=== PATIENT | female | born 1950 | race Caucasian/White ===

== ENCOUNTER 2019-01-28 00:39 | Outpatient (CLI) | payer MEDICARE, OTHER, SELFPAY ==
--- NOTE | 2019-01-28 06:49 | DI.RAD_ITS ---
SYMPTOM/DIAGNOSIS: INTERMITTENT DYSPHAGIA, R13.10 BARIUM SWALLOW: Fluoroscopy Time: .09 seconds The preliminary films of the chest show normal cardiac size, clear lungs and normal mediastinal contour. A lateral view of the neck shows no focal abnormality. Barium was ingested and showed grossly normal hypopharyngeal motility. Esophagus mucosa appears intact throughout and there is normal motility. A 12 mm. barium tablet passed easily through the esophagus into the stomach. IMPRESSION: Negative barium swallow.
[2019-01-28 08:55] LABS: Anion Gap 10.6 mmol/L (3-11); BUN 16 mg/dL (7-18); CO2 28.4 mmol/L (21.0-32.0); CREATININE 0.74 mg/dL (0.55-1.02); Calcium 9.2 mg/dL (8.5-10.1); Chloride 105 mmol/L (98-107); Cholesterol 224 mg/dL (50-200); Glucose 93 mg/dL (70-100); HDL Cholesterol 55 mg/dL (40-60); LDL CHOLESTEROL 144 mg/dL (<100); Potassium 3.9 mmol/L (3.5-5.1); Sodium 144 mmol/L (136-145); TSH 5.55 uIU/mL (0.358-3.74); Triglyceride 105 mg/dL (30-150)
[2019-01-28] MEDS: Barium Sulfate 60% W/V 355 ML BTL PO (08:59)
[2019-01-28] MEDS: Barium Sulfate 700 MG TAB PO (08:59)
--- NOTE | 2019-01-28 11:30 | DI.MAMMO_ITS ---
SYMPTOM/DIAGNOSIS: SCREENING, Z12.31 MAMMOGRAMS: Mammograms were interpreted according to the usual protocol including computer analysis with CAD system, tomosynthesis and C view imaging. The breasts are of moderate density with fairly symmetrical distribution of fibroglandular tissue. No dominant mass or clumped microcalcification is identified in either breast. The current examination is compared with previous examinations including 01/2017 and there has been no gross interval change in appearance in comparison with the previous studies. CONCLUSION: No specific evidence of malignancy at this time. Routine screening examinations are suggested at yearly intervals in this age group according to the ACS/ACR guidelines. Category 1. Breast density, category B. MQSA ASSESSMENT OF FINDINGS: Negative. Category 1. Patient will receive a letter notifying them of these results. BI-RADS category B. There are scattered areas of fibroglandular density.
== END 2019-01-28 00:59 ==
PROVIDERS: PCP Family Medicine; Visit Provider Family Medicine
DX: Z12.31 Encounter for screening mammogram for malignant neoplasm of breast (principal); R13.10 Dysphagia, unspecified; K76.0 Fatty (change of) liver, not elsewhere classified; E89.0 Postprocedural hypothyroidism; I10 Essential (primary) hypertension
CPT/HCPCS: 36415; 77063; 77067; 80048; 80061; 83721; 74220; 84443; J3490

== ENCOUNTER 2019-02-03 02:05 | Outpatient (CLI) | payer MEDICARE, OTHER, SELFPAY ==
[2019-02-03 17:00] LABS: T3,Free 3.2 pg/ml (2.8-5.3)
== END 2019-02-03 02:25 ==
PROVIDERS: PCP Family Medicine; Visit Provider Family Medicine
DX: R79.89 Other specified abnormal findings of blood chemistry (principal)
CPT/HCPCS: 36415; 84481

== ENCOUNTER 2020-10-04 03:00 | Outpatient (CLI) | payer MEDICARE, OTHER, SELFPAY ==
[2020-10-04 12:55] LABS: TSH 4.69 uIU/mL (0.36-3.74)
== END 2020-10-04 03:20 ==
PROVIDERS: PCP Nurse Practitioner; Visit Provider Nurse Practitioner
DX: E04.9 Nontoxic goiter, unspecified (principal)
CPT/HCPCS: 36415; 84443

== ENCOUNTER 2020-11-02 03:27 | Outpatient (CLI) | payer MEDICARE, OTHER, SELFPAY ==
[2020-11-02 13:24] LABS: FREE T4 0.91 ng/dL (0.76-1.46); TSH 3.16 uIU/mL (0.36-3.74)
[2020-11-02 17:46] LABS: Thyroglobulin Antibody 233 U/mL (<=60); Thyroperoxidase Antibody >1300 U/mL (<=60)
== END 2020-11-02 03:47 ==
PROVIDERS: PCP Nurse Practitioner; Visit Provider Nurse Practitioner Family
DX: E03.9 Hypothyroidism, unspecified (principal); E04.9 Nontoxic goiter, unspecified
CPT/HCPCS: 36415; 86376; 84439; 84443

== ENCOUNTER 2021-01-31 02:25 | Outpatient (CLI) | payer MEDICARE, OTHER, SELFPAY ==
--- NOTE | 2021-01-31 06:45 | DI.MAMMO_ITS ---
EXAM: MG MAMMO SCREENING CLINICAL HISTORY: screening,z12.39. TECHNIQUE: Bilateral full field digital CC and MLO mammographic images were obtained with 3D tomosyn thesis and utilizing computer aided detection (CAD). COMPARISON: Prior mammograms dating back to 2010, the most recent being January 2019. FINDINGS: There are multiple small benign-appearing nodules in both breasts which appears stable from prior filiberto dies. There are no new spiculated masses nor malignant appearing microcalcification groups. There is no significant architectural distortion nor skin thickening-retraction. IMPRESSION: Stable benign-appearing findings. No obvious radiographic evidence of malignancy. BI-RADS Category 2 - Benign Findings Breast Density - Category B - Scattered areas of fibroglandular density Breast density Category C or D implies that the patient has dense breast tissue. Dense breast tissue can make it harder to find cancer on a mammogram. Dense breast tissue is also associated with an incr eased risk of breast cancer. This information about the result of the mammogram report was provided to the patient to raise their awareness. Use this report when you speak with the patient about their risks for breast cancer, which includes their family history. At that time, you may recommend additional screening tests (Ultrasoun d or MRI) as these tests may add significant information. A negative radiographic report should not delay biopsy if a dominant or clinically suspicious mass is present. Up to ten percent of cancers are not identified on mammography. A negative report may reinforce clinical impression. Adenosis and dense breasts may obscure an underlying neoplasm. False positive reports average 6 to 10%. Patient will receive a letter notifying them of these results.
== END 2021-01-31 02:45 ==
PROVIDERS: PCP Nurse Practitioner; Visit Provider Nurse Practitioner
DX: Z12.31 Encounter for screening mammogram for malignant neoplasm of breast (principal)
CPT/HCPCS: 77063; 77067

== ENCOUNTER 2021-02-15 03:32 | Outpatient (CLI) | payer MEDICARE, OTHER, SELFPAY ==
[2021-02-15 12:39] LABS: ALT 36 U/L (14-59); AST 20 U/L (15-37); Albumin 3.9 g/dL (3.4-5.0); Alkaline Phosphatase 73 U/L (46-116); Bilirubin, Direct 0.1 mg/dL (0.0-0.2); Bilirubin, Total 0.4 mg/dL (0.2-1.0); CREATININE 0.8 mg/dL (0.55-1.02); Potassium 4.2 mmol/L (3.5-5.1); Total Protein 6.8 g/dL (6.4-8.2)
[2021-02-15 12:53] LABS: Calculated LDL 150 mg/dL (<100); Cholesterol 234 mg/dL (<200); HDL Cholesterol 55 mg/dL (40-60); Triglyceride 145 mg/dL (<150)
== END 2021-02-15 03:33 | disposition home or self-care (01) ==
PROVIDERS: PCP Nurse Practitioner; Visit Provider Nurse Practitioner
DX: I10 Essential (primary) hypertension (principal); K76.0 Fatty (change of) liver, not elsewhere classified
CPT/HCPCS: 36415; 80061; 80076; 82565; 84132

== ENCOUNTER 2022-02-09 02:05 | Outpatient (CLI) | payer MEDICARE, SELFPAY ==
[2022-02-09 12:47] LABS: Hemoglobin A1C 5.8 % (<5.7)
[2022-02-09 13:56] LABS: Anion Gap 8.7 mmol/L (3-11); BUN 15 mg/dL (7-18); CO2 29.3 mmol/L (21.0-32.0); CREATININE 0.6 mg/dL (0.55-1.02); Calcium 8.7 mg/dL (8.5-10.1); Calculated LDL 147 mg/dL (<100); Chloride 105 mmol/L (98-107); Cholesterol 237 mg/dL (<200); Glucose 86 mg/dL (74-106); HDL Cholesterol 56 mg/dL (40-60); Potassium 4.2 mmol/L (3.5-5.1); Sodium 143 mmol/L (136-145); TSH (W/Ref FT4) 4.23 uIU/mL (0.36-3.74); Triglyceride 171 mg/dL (<150)
[2022-02-09 14:14] LABS: FREE T4 0.82 ng/dL (0.76-1.46)
== END 2022-02-09 02:06 | disposition home or self-care (01) ==
LOC: LBO 02:06
PROVIDERS: PCP Nurse Practitioner; Visit Provider Nurse Practitioner
DX: I10 Essential (primary) hypertension (principal); R73.09 Other abnormal glucose; R13.10 Dysphagia, unspecified
CPT/HCPCS: 36415; 80048; 80061; 83036; 84439; 84443

== ENCOUNTER 2022-03-07 00:41 | Outpatient (CLI) | payer MEDICARE, SELFPAY ==
--- NOTE | 2022-03-07 06:30 | DI.MAMMO_ITS ---
Exam(s) MAMMO SCREENING EXAM: MAMMO SCREENING CLINICAL HISTORY: screening,z12.39. TECHNIQUE: Bilateral full field digital CC and MLO mammographic images were obtained with 3D tomosyn thesis and utilizing computer aided detection (CAD). COMPARISON: Prior mammograms were reviewed, the most recent being January 2021. FINDINGS: There is continued stable appearance of the benign-appearing nodules in both breasts. There are no new spiculated masses nor malignant appearing microcalcification groups. There is no significant architectural distortion nor skin thickening-retraction. IMPRESSION: Stable benign findings. No radiographic evidence of malignancy. BI-RADS Category 2 - Benign Findings Breast Density - Category B - Scattered areas of fibroglandular density Breast density Category C or D implies that the patient has dense breast tissue. Dense breast tissue can make it harder to find cancer on a mammogram. Dense breast tissue is also associated with an incr eased risk of breast cancer. This information about the result of the mammogram report was provided to the patient to raise their awareness. Use this report when you speak with the patient about their risks for breast cancer, which includes their family history. At that time, you may recommend additional screening tests (Ultrasoun d or MRI) as these tests may add significant information. A negative radiographic report should not delay biopsy if a dominant or clinically suspicious mass is present. Up to ten percent of cancers are not identified on mammography. A negative report may reinforce clinical impression. Adenosis and dense breasts may obscure an underlying neoplasm. False positive reports average 6 to 10%. Patient will receive a letter notifying them of these results.
== END 2022-03-07 01:01 ==
PROVIDERS: PCP Nurse Practitioner; Visit Provider Nurse Practitioner
DX: Z12.31 Encounter for screening mammogram for malignant neoplasm of breast (principal)
CPT/HCPCS: 77063; 77067

== ENCOUNTER 2022-07-27 15:24 | Outpatient (REF) | payer MEDICARE, SELFPAY | END 2022-07-27 15:25 | disposition home or self-care (01) | LOC: LBN 15:24 | PROVIDERS: PCP Nurse Practitioner; Visit Provider Emergency Medicine | DX: R19.7 Diarrhea, unspecified (principal) | CPT/HCPCS: 87329 ==

== ENCOUNTER 2022-08-29 02:32 | Outpatient (CLI) | payer MEDICARE, SELFPAY ==
[2022-08-29 13:01] LABS: Calculated LDL 75 mg/dL (<100); Cholesterol 148 mg/dL (<200); HDL Cholesterol 57 mg/dL (40-60); Triglyceride 83 mg/dL (<150)
== END 2022-08-29 02:33 | disposition home or self-care (01) ==
LOC: LOS 02:32
PROVIDERS: PCP Nurse Practitioner; Visit Provider Nurse Practitioner
DX: E78.5 Hyperlipidemia, unspecified (principal)
CPT/HCPCS: 36415; 80061

== ENCOUNTER 2023-02-20 02:44 | Outpatient (CLI) | payer MEDICARE, SELFPAY ==
[2023-02-20 07:44] LABS: HCT 41.7 % (36.0-46.0); HGB 13.7 g/dL (11.2-15.7); MCH 29.1 pg (27.0-33.0); MCHC 32.9 % (32.0-36.0); MCV 89 fL (80-95); MPV 9.9 fL (8.0-11.0); Platelet Count 214 10^3/uL (130-400); RDW 12.7 % (11.7-14.6); RDW-SD 41.6 fL; WBC 6.06 10^3/uL (4.4-10.8)
[2023-02-20 07:58] LABS: Hemoglobin A1C 5.7 % (<5.7)
[2023-02-20 08:42] LABS: ALT 28 U/L (14-59); AST 16 U/L (15-37); Albumin 3.8 g/dL (3.4-5.0); Alkaline Phosphatase 82 U/L (46-116); Anion Gap 6.9 mmol/L (3-11); BUN 17 mg/dL (7-18); Bilirubin, Total 0.4 mg/dL (0.2-1.0); CO2 29.1 mmol/L (21.0-32.0); CREATININE 0.8 mg/dL (0.55-1.02); Calcium 9.1 mg/dL (8.5-10.1); Calculated LDL 80 mg/dL (<100); Chloride 106 mmol/L (98-107); Cholesterol 158 mg/dL (<200); Estimated GFR 78.72 (mL/min/1.73m2); Glucose 93 mg/dL (74-106); HDL Cholesterol 65 mg/dL (40-60); Potassium 4.2 mmol/L (3.5-5.1); Sodium 142 mmol/L (136-145); TSH (W/Ref FT4) 4.28 uIU/mL (0.36-3.74); Total Protein 7.3 g/dL (6.4-8.2); Triglyceride 66 mg/dL (<150)
[2023-02-20 08:59] LABS: FREE T4 0.74 ng/dL (0.76-1.46)
== END 2023-02-20 02:45 | disposition home or self-care (01) ==
PROVIDERS: PCP Nurse Practitioner Family; Visit Provider Nurse Practitioner Family
DX: R13.10 Dysphagia, unspecified (principal); E66.9 Obesity, unspecified; E78.5 Hyperlipidemia, unspecified; F51.01 Primary insomnia; I10 Essential (primary) hypertension; K76.0 Fatty (change of) liver, not elsewhere classified; R73.03 Prediabetes; E04.9 Nontoxic goiter, unspecified
CPT/HCPCS: 36415; 80053; 80061; 85027; 83036; 84439; 84443

== ENCOUNTER 2023-03-13 01:30 | Outpatient (CLI) | payer MEDICARE, SELFPAY ==
--- NOTE | 2023-03-13 12:20 | DI.MAMMO_ITS ---
Exam(s) MAMMO SCREENING EXAM: MAMMO SCREENING CLINICAL HISTORY: screening,z12.39. TECHNIQUE: Bilateral full field digital CC and MLO mammographic images were obtained with 3D tomosyn thesis and utilizing computer aided detection (CAD). COMPARISON: Prior mammograms were reviewed. FINDINGS: There has been no significant change in the appearance and distribution of the fibroglandular tissue. Few benign intramammary lymph nodes are unchanged. There are no new spiculated masses nor malignant appearing microcalcification groups. There is no significant architectural distortion nor skin thickening-retraction. IMPRESSION: No radiographic evidence of malignancy. BI-RADS Category 1 - Negative Breast Density - Category B - Scattered areas of fibroglandular density Breast density Category C or D implies that the patient has dense breast tissue. Dense breast tissue can make it harder to find cancer on a mammogram. Dense breast tissue is also associated with an incr eased risk of breast cancer. This information about the result of the mammogram report was provided to the patient to raise their awareness. Use this report when you speak with the patient about their risks for breast cancer, which includes their family history. At that time, you may recommend additional screening tests (Ultrasoun d or MRI) as these tests may add significant information. A negative radiographic report should not delay biopsy if a dominant or clinically suspicious mass is present. Up to ten percent of cancers are not identified on mammography. A negative report may reinforce clinical impression. Adenosis and dense breasts may obscure an underlying neoplasm. False positive reports average 6 to 10%. Patient will receive a letter notifying them of these results.
== END 2023-03-13 01:50 ==
LOC: DI 01:30
PROVIDERS: PCP Nurse Practitioner Family; Visit Provider Nurse Practitioner Family
DX: Z12.31 Encounter for screening mammogram for malignant neoplasm of breast (principal)
CPT/HCPCS: 77063; 77067

== ENCOUNTER 2024-02-25 05:11 | Outpatient (CLI) | payer MEDICARE, SELFPAY ==
[2024-02-25 12:15] LABS: HCT 44.9 % (36.0-46.0); HGB 14.2 g/dL (11.2-15.7); MCH 28.9 pg (27.0-33.0); MCHC 31.6 % (32.0-36.0); MCV 91 fL (80-95); MPV 11.1 fL (8.0-11.0); Platelet Count 211 10^3/uL (130-400); RBC 4.92 10^6/uL (3.93-5.22); RDW 12.9 % (11.7-14.6); RDW-SD 42.9 fL; WBC 10.37 10^3/uL (4.4-10.8)
[2024-02-25 12:54] LABS: ALT 29 U/L (14-59); AST 16 U/L (15-37); Albumin 3.8 g/dL (3.4-5.0); Alkaline Phosphatase 80 U/L (46-116); Anion Gap 8.8 mmol/L (3-11); BUN 17 mg/dL (7-18); Bilirubin, Total 0.4 mg/dL (0.2-1.0); CO2 29.2 mmol/L (21.0-32.0); CREATININE 0.8 mg/dL (0.55-1.02); Calcium 9.2 mg/dL (8.5-10.1); Calculated LDL 76 mg/dL (<100); Chloride 108 mmol/L (98-107); Cholesterol 156 mg/dL (<200); Estimated GFR 78.24 (mL/min/1.73m2); Glucose 100 mg/dL (74-106); HDL Cholesterol 65 mg/dL (40-60); Potassium 4.8 mmol/L (3.5-5.1); Sodium 146 mmol/L (136-145); TSH (W/Ref FT4) 4.25 uIU/mL (0.36-3.74); Total Protein 7.1 g/dL (6.4-8.2); Triglyceride 79 mg/dL (<150)
[2024-02-25 13:12] LABS: FREE T4 0.82 ng/dL (0.76-1.46)
== END 2024-02-25 05:12 | disposition home or self-care (01) ==
LOC: LOS 05:11
PROVIDERS: PCP Nurse Practitioner Family; Visit Provider Nurse Practitioner Family
DX: I10 Essential (primary) hypertension (principal); Z00.00 Encounter for general adult medical examination without abnormal findings; E78.5 Hyperlipidemia, unspecified; E66.9 Obesity, unspecified; F51.01 Primary insomnia
CPT/HCPCS: 36415; 80053; 80061; 85027; 84439; 84443

== ENCOUNTER → 2024-02-27 02:40 | Outpatient (CLI) | payer MEDICARE, SELFPAY ==
--- NOTE | 2024-02-27 07:00 | DI.US_ITS ---
Exam(s) US THYROID EXAM: US THYROID CLINICAL HISTORY: evaluate thyroid goiter,e04.9. TECHNIQUE: Ultrasound thyroid performed using standard protocol. COMPARISON: No exams were available for comparison FINDINGS: ISTHMUS: 8 mm. There is a 1.5 x 1.7 x 2.2 cm solid hyperechoic nodule to the left in the isthmus. I t is consistent with a TI rads level 3 nodule. Due to its size, follow-up is recommended. RIGHT LOBE: Size: 6.2 x 2.3 x 1.9 cm Echogenicity: There is diffuse heterogeneity of the right lobe of the thyroid gland. Vascularity: Increased vascularity is noted. Nodules: There are several nodule seen within the right lobe. There is a 1.6 x 1.3 x 1.3 cm solid hy perechoic nodule in the lower pole of the right lobe. It does contain a macrocalcification. It is c onsistent with a TI rads 4 level nodule. Due to its size, FNA is recommended. LEFT LOBE: Size: 5.3 x 1.7 x 1.4 cm Echogenicity: Normal. Vascularity: Normal. Nodules: None. OTHER FINDINGS: None. IMPRESSION: 1. Multinodular, heterogeneous hypervascular gland suspicious for diffuse thyroid disease. This may represent a thyroiditis. Please correlate with the patient's laboratory values. 2. There is a TI rads 4 level nodule in the right lobe. Due to its size, FNA is recommended. DATA REPOSITORY:
== END ==
PROVIDERS: PCP Nurse Practitioner Family; Visit Provider Nurse Practitioner Family
DX: E04.2 Nontoxic multinodular goiter (principal)
CPT/HCPCS: 76536

== ENCOUNTER → 2024-03-12 02:52 | Outpatient (CLI) | payer MEDICARE, SELFPAY ==
--- NOTE | 2024-03-12 08:35 | DI.US_ITS ---
APPROVED REPORT EXAM: Comprehensive 2D, Doppler, and color-flow Echocardiogram Patient Location: Out-Patient Bread Molder: Estela James RDCS (AE) Indications: Irregular rhythm, palpitations, Cardiac arrhythmia Other Information Study Quality: Adequate Conclusion Normal left ventricular wall thickness and chamber size. Ejection fraction is 60%. Wall motion is n ormal Normal right ventricular size and function Both atria are normal in size The aortic valve is mildly sclerotic and trileaflet without stenosis or regurgitation Ascending aorta measures 3.9 cm Wall motion Left Ventricle The left ventricle is normal size. The left ventricular systolic function is normal. The left ventric ular ejection fraction is within the normal range. There is normal left ventricular wall thickness. T here is normal LV segmental wall motion. There is no ventricular septal defect visualized. LVEF is 6 0%. Right Ventricle The right ventricle is normal size. The right ventricular systolic function is normal. Atria The left atrium size is normal. The right atrium size is normal. The interatrial septum is intact wit h no evidence for an atrial septal defect. Aortic Valve The Aortic valve is mildly sclerotic. Aortic valve is trileaflet. There is no aortic valvular stenosi s. No aortic regurgitation is present. Mitral Valve The mitral valve is normal in structure. No evidence of mitral valve stenosis. Trace mitral regurgita tion. Tricuspid Valve The tricuspid valve is normal in structure. There is no tricuspid valve stenosis. Trace tricuspid reg urgitation. Unable to assess PA pressure. Pulmonic Valve The pulmonary valve is normal in structure. There is no pulmonic valvular stenosis. Trace pulmonic re gurgitation. Great Vessels The aortic root is normal in size. The ascending aorta is mildly dilated. Aortic arch is normal in ca liber. IVC is normal in size and collapses >50% with inspiration. Pericardium There is no pericardial effusion. 2D Dimensions IVSD d PLAX 0.88 cm F: 0.6-1.0 Ao Root d 3.14 cm F: 2.7 - 3.3 LVPW d PLAX 0.87 cm F: 0.6 - 1.0 Ao Asc Diam d 3.94 cm F: 2.3 - 3.1 LVID d PLAX 4.73 cm F: 3.8 - 5.2 LVDs 3.21 cm F: 2.2 - 3.5 LV EF Teichholz 60.1 % FS 32.02 % LV EDV (Teich) 103.7 mL LV ESV (Teich) 41.3 mL M-Mode TAPSE 2.53 cm (M/F) >1.7 Auto EF LV EDV A4C 127.3 mL LV EDV A2C 149.6 mL LV EDV BP 138.5 mL LV ESV A4C 51.8 mL LV ESV A2C 61.1 mL LV ESV BP 56.3 mL LVEF(%) A4C 59.3 % LVEF(%) A2C 59.1 % LVEF(%) BP 59.4 % LV SV A4C 75.4 ml LV SV A2C 88.5 ml LV SV BP 82.2 ml LV CO A4C 3.9 L/min LV CO A2C 4.8 L/min LV CO BP 4.4 L/min HR A4C 51.49 BPM HR A2C 54.47 BPM LV EDV Index (BP) LA Volume LA Length A4C 5.3 cm LA Length A2C 4.8 cm LA Area A4C s 17.92 cm2 LA Area A2C s 17.45 cm2 LA Vol A4C A-L 51.13 mL LA Vol A2C A-L 53.68 mL LA Vol Biplane A-L 55.1 mL LA Vol/BSA A4C A-L LA Vol/BSA A2C A-L LA Vol/BSA BP A-L 27.7 mL/m2 LA Vol A4C MOD 48.8 mL LA Vol A2C MOD 50.6 mL LA Vol BP MOD 52.1 mL RA Volume RA Area A4C 14.4 cm2 RA ESV A4C (A-L) 40.7mL RA Vol/BSA A4C A-L RA Length A4C 4.3 cm RA ESV A4C (MOD) 34.8mL LV Diastology MV E' medial 0.082 (>0.07 m/s) MV E Vmax 0.81 (0.4-1.3 m/s) MV E/E' MED 9.86 (<14) MV A Vmax 0.95 (0.4-1.3 m/s) MV E' lateral 0.067 (>0.1 m/s) E/A Ratio 0.9 MV E/E' LAT 12.12 (<14) MV E' Average 0.074 m/s MV E/E'(average) 10.87 Aortic Valve AoV Vmax 1.66 m/s LVOT Vmax 1.16 m/s AoV Peak Grad 11.1 mmHg LVOT Peak Grad 5.4 mmHg AoV Area (Vmax) 1.75 cm2 LVOT VTI 0.258 m AoV VTI 0.376 m LVOT Mean Grad 2.8 mmHg AoV Mean Terry. 1.12 m/s LVOT SV 64.76 mL AoV Mean Grad 5.7 mmHg LVOT Diam s 1.75 cm AoV Area (VTI) 1.72 cm2 Velocity Ratio 0.70 Mitral Valve MV DT 221 (160-240 msec) MV Vmax TIPS 0.92 m/s MV Mean Grad 1.4 (<2mmHg) MV VTI 0.359 m Pulmonary Valve PV Vmax 0.91 (0.5-1.5 m/s) RVOT Vmax 0.65 m/s PV Peak Grad 3.3 mmHg RVOT Peak Gr. 1.7 mmHg PV Mean Terry 0.63 m/s RVOT VTI 0.148 m PV Mean Grad 1.8 mmHg RVOT Mean Gr. 1.0 mmHg Tricuspid Valve TV S' 0.15 m/s
== END ==
PROVIDERS: PCP Nurse Practitioner Family; Visit Provider Nurse Practitioner Family
DX: R00.2 Palpitations (principal); I49.9 Cardiac arrhythmia, unspecified; I36.1 Nonrheumatic tricuspid (valve) insufficiency; I34.0 Nonrheumatic mitral (valve) insufficiency
CPT/HCPCS: 93306

== ENCOUNTER → 2024-04-29 01:51 | Outpatient (CLI) | payer MEDICARE, SELFPAY ==
--- NOTE | 2024-04-29 07:15 | DI.US_ITS ---
Exam(s) US NEEDLE LOCAL OTHER WO RAD EXAM: US NEEDLE LOCAL OTHER WO RAD CLINICAL HISTORY: right-side thyroid nodule TR4,ULTRASOUND GUIDED BX,E04.1. COMPARISON: No exams were available for comparison TECHNIQUE: Ultrasound was provided device with performing thyroid FNA. FINDINGS: See please see procedure note for details. . DATA REPOSITORY:
--- NOTE | 2024-04-29 11:25 | PAPNONF_PTH ---
PATIENT: Kasey Breaux LOC: [facility] U#:[id number] AGE/SX: 75/F ROOM: RE04/29/[address]: Sejal Barnes : 1950 BED: DIS: SPEC #: [id number] RECD: 04/29/24 13:17 STATUS: SUHA BREWER #: [id number] KEI: 04/29/24 11:[address]: Sejal Barnes DEPT: [facility] Cytology RECD BY: Rosita Ayers ENTERED: 04/29/24 13:18 SP TYPE: SUE FALL DR: Blanca Lopez, RACHEL Tissues: 1 - BODY FLUID CYTO-FINE NEEDLE [facility] Procedures: BODY FLUID CYTO-FINE NEEDLE ASPIRATE[facility] Comments: [id number] (PATH FNA CONSULT) (REFRIGERATED)
--- NOTE | 2024-04-29 11:49 | W.PROCNOTE ---
Date of service: 04/29/24 Time of Service: 11:49 Procedure Note Date of procedure: 04/29/24 Procedure: Ultrasound-guided FNA, right thyroid nodule, pathology present Surgeon/Proceduralist/Physician: Steve Vitale Procedure Diagnosis: Thyroid nodule meeting criteria for biopsy Procedure Indications: Patient with a right-sided thyroid nodule meeting criteria for biopsy. Options were explained to the patient regarding further management. She elected to undergo the above procedure. Consent was filled out and signed prior to procedure Procedure Description: The patient was positioned in supine position and prepped and draped in appropriate fashion with her neck slightly extended. Ultrasound was used to localize the right-sided inferior thyroid nodule. 1% lidocaine with 1/100,000 epinephrine was injected in the skin and subcutaneous tissues overlying the nodule and then a 25-gauge needle passed repeatedly into the thyroid nodule. 3 passes were reviewed in total. Cellular adequacy was judged to be insufficient by pathology on the third pass. 2 additional passes were made for potential Afirma testing. After verifying hemostasis, the sterile dressing was applied and the patient was allowed to sit and then stand and ambulate. Her vital signs remained stable. For aftercare, she is to remove the bandage tonight and not replace it. She will call with any signs of infection or any concerns. She will use ibuprofen or Tylenol for any discomfort. She will call if she does not hear from me within 1 week with regard to pathology results. She had no further questions. She is comfortable with the plan
== END ==
PROVIDERS: PCP Nurse Practitioner Family; Visit Provider Registered Nurse Maternal Newborn
DX: E04.1 Nontoxic single thyroid nodule (principal)
CPT/HCPCS: 10005; 76942; 88104

== ENCOUNTER 2024-08-19 02:29 | Outpatient (CLI) | payer MEDICARE, SELFPAY ==
[2024-08-19 13:17] LABS: TSH (W/Ref FT4) 2.94 uIU/mL (0.36-3.74)
== END 2024-08-19 02:30 | disposition home or self-care (01) ==
LOC: LOS 02:30
PROVIDERS: PCP Nurse Practitioner Family; Visit Provider Nurse Practitioner Family
DX: E03.9 Hypothyroidism, unspecified (principal)
CPT/HCPCS: 36415; 84443

== ENCOUNTER 2025-02-27 00:45 | Outpatient (CLI) | payer MEDICARE, SELFPAY ==
[2025-02-27 12:51] LABS: Hemoglobin A1C 5.6 % (<5.7)
[2025-02-27 12:53] LABS: ALT 30 U/L (14-59); AST 30 U/L (15-37); Alkaline Phosphatase 83 U/L (46-116); Anion Gap 9.1 mmol/L (3-11); BUN 21 mg/dL (7-18); Bilirubin, Total 0.6 mg/dL (0.2-1.0); CO2 27.9 mmol/L (21.0-32.0); CREATININE 0.7 mg/dL (0.55-1.02); Calcium 9.3 mg/dL (8.5-10.1); Calculated LDL 98 mg/dL (<100); Chloride 107 mmol/L (98-107); Cholesterol 176 mg/dL (<200); Estimated GFR 91.26 (mL/min/1.73m2); Glucose 91 mg/dL (74-106); HDL Cholesterol 65 mg/dL (>or=50); Potassium 4.4 mmol/L (3.5-5.1); Sodium 144 mmol/L (136-145); TSH (W/Ref FT4) 2.28 uIU/mL (0.36-3.74); Total Protein 7.3 g/dL (6.4-8.2); Triglyceride 66 mg/dL (<150)
== END 2025-02-27 00:46 | disposition home or self-care (01) ==
LOC: LOS 00:46
PROVIDERS: PCP Nurse Practitioner Family; Visit Provider Nurse Practitioner Family
DX: I10 Essential (primary) hypertension; E78.5 Hyperlipidemia, unspecified; E03.9 Hypothyroidism, unspecified; E04.1 Nontoxic single thyroid nodule; E66.9 Obesity, unspecified; R73.9 Hyperglycemia, unspecified
CPT/HCPCS: 36415; 80053; 80061; 83036; 84443

== ENCOUNTER 2025-04-01 00:24 | Outpatient (CLI) | payer MEDICARE, SELFPAY ==
--- NOTE | 2025-04-01 07:00 | DI.RAD_ITS ---
Exam(s) XR FOOT LT COMPLETE XR ANKLE LT COMPLETE EXAM: XR ANKLE LT COMPLETE CLINICAL HISTORY: Left ankle pain,M25.572 TECHNIQUE: 2D digital imaging was performed. Three views of the ankle and foot. COMPARISON: CR XR FOOT LT COMPLETE from 04/01/2025 FINDINGS: BONES: No acute fracture is present. No bony destructive lesion is seen. JOINTS:The ankle mortise is normally aligned. Ankle joint space is maintained. Mild spurring at th e medial malleolus. Degenerative changes at the posterior talocalcaneal joint. Small enthesophyte a t Achilles insertion. Tiny plantar calcaneal spur. Severe degenerative changes of the 1st MTP joint . No significant hallux valgus. flattening of the plantar arch. SOFT TISSUE: Soft tissue swelling around malleoli. 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 DATA REPOSITORY: RADIATION DOSE DELIVERED:
== END 2025-04-01 00:44 ==
LOC: DI 00:24
PROVIDERS: PCP Nurse Practitioner Family; Visit Provider Podiatrist
DX: M19.072 Primary osteoarthritis, left ankle and foot; R20.0 Anesthesia of skin; G57.52 Tarsal tunnel syndrome, left lower limb; R60.0 Localized edema
CPT/HCPCS: 29580; 29850; 73610; 73630

== ENCOUNTER 2025-04-03 00:26 | Outpatient (CLI) | payer MEDICARE, SELFPAY ==
--- NOTE | 2025-04-03 06:30 | DI.DEXA_ITS ---
Exam(s) XR DEXA BONE DENSITY W/WO BARRON EXAM: XR DEXA BONE DENSITY W/WO BARRON CLINICAL HISTORY: screening for osteoporosis in postmenopausal status,preventative health TECHNIQUE: Routine DEXA evaluation of the lumbar spine, hip, or forearm. COMPARISON: No exams were available for comparison FINDINGS: Performed on a Hologic unit. Lateral image: No compression fracture evident. Lumbar Spine total T-score: 2.3. This is normal range. Hip total T-score:-1.3 which is osteopenia range. Independent reading at the level of the femoral neck yields T-score of -0.9 Forearm total T-score: -0.9 which is normal range. IMPRESSION: Bone mineral density measures in the osteopenia range for the hip. Fracture risk is moderate. Bone mineral density is in normal range for the lumbar spine and forearm. Fracture risk is low at these l evels Note: Any spine fracture indicates 5x risk for subsequent spine fracture and 2x risk for subsequent h ip fracture. World Health Organization criteria for BMD interpretation classify patients: Normal...... T- Score at or above -1.0 Osteopenic... T- Score between -1.0 and -2.5 Osteoporosis... T-Score at or below -2.5
--- NOTE | 2025-04-03 09:53 | DI.MAMMO_ITS ---
Exam(s) MAMMO SCREENING EXAM: MAMMO SCREENING CLINICAL HISTORY: screening,z12.39, [facility] health care,z00.00. TECHNIQUE: Bilateral full field digital CC and MLO mammographic images were obtained with 3D tomosyn thesis and utilizing computer aided detection (CAD). COMPARISON: Prior mammograms were reviewed. FINDINGS: There has been no significant change in the appearance and distribution of the fibroglandular tissue. Small nodular densities anteriorly in the right breast are unchanged from prior mammograms. Benign-appearing nodule upper outer quadrant left breast is also unchanged from prior mammograms. There are no new spiculated masses nor new malignant appearing microcalcification groups. There is no significant architectural distortion nor skin thickening-retraction. IMPRESSION: No radiographic evidence of malignancy. Stable benign-appearing findings BI-RADS Category 2 - Benign Findings Breast Density - Category B - There are scattered areas of fibroglandular density. Breast density Category C or D implies that the patient has dense breast tissue. Dense breast tissue can make it harder to find cancer on a mammogram. Dense breast tissue is also associated with an incr eased risk of breast cancer. This information about the result of the mammogram report was provided to the patient to raise their awareness. Use this report when you speak with the patient about their risks for breast cancer, which includes their family history. At that time, you may recommend additional screening tests (Ultrasoun d or MRI) as these tests may add significant information. A negative radiographic report should not delay biopsy if a dominant or clinically suspicious mass is present. Up to ten percent of cancers are not identified on mammography. A negative report may reinforce clinical impression. Adenosis and dense breasts may obscure an underlying neoplasm. False positive reports average 6 to 10%. Patient will receive a letter notifying them of these results.
== END 2025-04-03 00:46 ==
LOC: DI 00:27
PROVIDERS: PCP Nurse Practitioner Family; Visit Provider Nurse Practitioner Family
DX: Z12.31 Encounter for screening mammogram for malignant neoplasm of breast (principal); Z13.820 Encounter for screening for osteoporosis; Z78.0 Asymptomatic menopausal state
CPT/HCPCS: 77063; 77067; 77080

== ENCOUNTER 2025-04-15 01:52 | Outpatient (CLI) | payer MEDICARE, SELFPAY ==
--- NOTE | 2025-04-15 07:00 | DI.RAD_ITS ---
Exam(s) XR ANKLE LT COMPLETE EXAM: XR ANKLE LT COMPLETE CLINICAL HISTORY: ? any changes,pain lt ankle,M25.572 TECHNIQUE: 2D digital imaging was performed of the left ankle. Five images were obtained. AP, late ral and oblique views were obtained. COMPARISON: CR XR ANKLE LT COMPLETE from 04/01/2025 FINDINGS: BONES: No acute fracture is present. No bony destructive lesion is seen. There is a small enthesophyt e at the posterior calcaneus. JOINTS:The ankle mortise is normally aligned. The joint spaces are well maintained. SOFT TISSUE: Normal. IMPRESSION: No change in appearance of the left ankle compared to the prior examination. DATA REPOSITORY: RADIATION DOSE DELIVERED:
== END 2025-04-15 02:12 ==
LOC: DI 01:52
PROVIDERS: PCP Nurse Practitioner Family; Visit Provider Podiatrist
DX: M25.572 Pain in left ankle and joints of left foot (principal)
CPT/HCPCS: 73610

== ENCOUNTER 2025-05-05 01:57 | Outpatient (CLI) | payer MEDICARE, SELFPAY ==
--- NOTE | 2025-05-05 05:45 | DI.US_ITS ---
Exam(s) US THYROID EXAM: US THYROID CLINICAL HISTORY: Benign thyroid nodule by biopsy, assess for change,e04.1. TECHNIQUE: Ultrasound thyroid performed using standard protocol. COMPARISON: US US THYROID from 02/27/2024 FINDINGS: ISTHMUS: 8 mm. 2.5 x 1.4 x 2.5 centimeter solid hyperechoic nodule with smooth margins no echogenic foci, TR 3. This has increased in size from the previous exam. Other smaller nodules are also seen. RIGHT LOBE: Size: 6.7 x 2.2 x 1.9 cm Echogenicity: Normal. Vascularity: Normal. Nodules: Multiple. Previously mentioned nodule at the lower pole is unchanged in size, measuring 1.6 x 1.2 x 1.4 cm. It is solid, hyperechoic, smoothly marginated with macrocalcification, TR 4. LEFT LOBE: Size: 5.5 x 2.0 x 2.1 cm Echogenicity: Normal. Vascularity: Normal. Nodules: Multiple. Largest nodule 1.6 cm at the lower pole. Solid, smoothly marginated, hyperechoic, and without echogenic foci, TR 3. OTHER FINDINGS: No adenopathy IMPRESSION: Interval increase in size of previously noted TR 3 nodule in the isthmus. Stable appearance of TR 4 nodule in the right lobe. DATA REPOSITORY:
== END 2025-05-05 02:17 ==
PROVIDERS: PCP Nurse Practitioner Family; Visit Provider Otolaryngology
DX: E04.1 Nontoxic single thyroid nodule (principal)
CPT/HCPCS: 76536

== ENCOUNTER 2025-07-10 05:29 | Outpatient (CLI) | payer MEDICARE, SELFPAY ==
--- NOTE | 2025-07-10 06:00 | DI.RAD_ITS ---
Exam(s) XR HIP RT COMPLETE AP PELVIS EXAM: XR HIP RT COMPLETE AP PELVIS CLINICAL HISTORY: continued right hip pain, M25.551. TECHNIQUE: 2D digital imaging was performed. Two views COMPARISON: No exams were available for comparison FINDINGS: BONES: No acute fracture is present. No bony destructive lesion is seen. JOINTS: There is severe narrowing right hip joint space. There is prominent spurring at the acetabulum and mild spurring at the margins of the femoral head. There is slight flattening of the superior lateral aspect of the femoral head. There is mild narrowing of the right hip joint space and mild to moderate spurring at the acetabulum there is mild spurring at the margin of the femoral head. There is also spurring at the sacroiliac joints and sclerosis at the pubic symphysis. SOFT TISSUE: Normal. IMPRESSION: Severe degenerative changes of the right hip. [id number] degenerative changes of the left hip. DATA REPOSITORY: RADIATION DOSE DELIVERED:
== END 2025-07-10 05:49 ==
LOC: DI 05:29
PROVIDERS: PCP Nurse Practitioner Family; Visit Provider Nurse Practitioner Family
DX: M16.0 Bilateral primary osteoarthritis of hip (principal)
CPT/HCPCS: 73502

== ENCOUNTER 2025-09-24 15:04 | Outpatient (CLI) | payer MEDICARE, SELFPAY ==
--- NOTE | 2025-09-24 13:45 | DI.RAD_ITS ---
Exam(s) XR PELVIS PREOP ORTHO EXAM: XR PELVIS PREOP ORTHO CLINICAL HISTORY: pre STACIE,right hip. TECHNIQUE: 2D digital imaging was performed. Single AP view with template ball. COMPARISON: CR XR HIP RT COMPLETE AP PELVIS from 07/10/2025 FINDINGS: BONES: No acute fracture is present. No bony destructive lesion is seen. JOINTS: No dislocation present. There is severe narrowing of the right hip joint space, with a [id number] appearance. There is prominent periarticular spurring. The left hip joint space is mildly narrowed and shows moderate acetabular spurring. SOFT TISSUE: Normal. IMPRESSION: Severe degenerative changes of the right hip. DATA REPOSITORY: RADIATION DOSE DELIVERED:
== END 2025-09-24 15:05 | disposition home or self-care (01) ==
LOC: DIORS 15:05
PROVIDERS: PCP Nurse Practitioner Family; Referring Provider Nurse Practitioner Family; Visit Provider Student in an Organized Health Care Education/Training Program
DX: M16.11 Unilateral primary osteoarthritis, right hip (principal)
CPT/HCPCS: 99204; 72190

== ENCOUNTER 2025-09-24 16:14 | Outpatient (REF) | payer MEDICARE, SELFPAY ==
[2025-09-24 16:51] LABS: HCT 39.8 % (36.0-46.0); HGB 13.4 g/dL (11.2-15.7); MCH 29.9 pg (27.0-33.0); MCHC 33.7 % (32.0-36.0); MCV 89 fL (80-95); MPV 10.7 fL (8.0-11.0); Platelet Count 247 10^3/uL (130-400); RBC 4.48 10^6/uL (3.93-5.22); RDW 12.6 % (11.7-14.6); RDW-SD 41.2 fL; WBC 7.67 10^3/uL (4.4-10.8)
[2025-09-24 17:09] LABS: Anion Gap 9.4 mmol/L (3-11); BUN 19 mg/dL (9-23); CO2 26.6 mmol/L (20.0-31.0); Calcium 9.3 mg/dL (8.3-10.6); Chloride 107 mmol/L (98-107); Glucose 106 mg/dL (74-106); Potassium 4.1 mmol/L (3.5-5.1); Sodium 143 mmol/L (136-145)
== END 2025-09-24 16:15 | disposition home or self-care (01) ==
LOC: LBN 16:14
PROVIDERS: PCP Nurse Practitioner Family; Visit Provider Student in an Organized Health Care Education/Training Program
DX: M16.11 Unilateral primary osteoarthritis, right hip (principal); Z01.818 Encounter for other preprocedural examination
CPT/HCPCS: 80048; 85027

== ENCOUNTER 2025-09-29 09:34 | Day surgery (SDC) | payer MEDICARE, SELFPAY ==
[2025-09-29] VITALS (21 sets, daily range): BP systolic 123–180; BP diastolic 60–102; PULSE 44–73; RESP 12–17; TEMP 36–36.8; O2SAT 93–100; BMI 32.9
--- NOTE | 2025-09-29 07:19 | W.PM.DSUDISC ---
Date of service: 09/29/25 Discharge Plan Disposition Patient Disposition: Home Condition: Good Discharge Details Reason For Visit: Right hip DJD Attending Provider: Elton Clark Primary Care Provider: Blanca Lopez Home Meds and New Rx's Prescriptions: New celecoxib [Celebrex] 200 mg capsule 200 mg PO BID PRNQty: 60 0RF Rx Instructions: Take one tablet twice daily for pain and inflammation aspirin 81 mg tablet,delayed release (DR/EC) 81 mg PO BID 30 Days Qty: 60 0RF acetaminophen 500 mg tablet 1,000 mg PO Q8H PRN Qty: 90 0RF Rx Instructions: Take two tablets up to every 8 hours as needed for pain pantoprazole 40 mg tablet,delayed release (DR/EC) 40 mg PO DAILY Qty: 14 0RF Rx Instructions: Take one tablet once daily dexamethasone 4 mg tablet 4 mg PO DAILY Qty: 2 0RF Rx Instructions: Take one tablet once daily for two days docusate sodium [Colace] 100 mg capsule 100 mg PO BID Qty: 28 0RF oxycodone 5 mg tablet 5 mg PO Q6H PRNQty: 12 0RF Rx Instructions: Take one tablet up to every 6 hours as needed for severe postoperative pain Continued coQ10 (ubiquinol) [Qunol Maxime CoQ10] 100 mg capsule 100 mg PO DAILY Patient Comments: OTC Daily Multiple For Women 18 mg iron-400 mcg-500 mg Ca tablet 1 tab PO DAILY serrapeptase 1 tab PO DAILY atorvastatin 20 mg tablet 20 mg PO .QOD Qty: 90 3RF levothyroxine 25 mcg tablet 25 mcg PO HS lisinopril 5 mg tablet 5 mg PO HS Discharge Instructions Additional Instructions: Total Hip Discharge Instructions Activity: The most important activity is to walk. You should try to take short walks a few times a day. You have no restrictions on movement or positioning, but do not try to force what you do. You will find some stiffness and weakness with hip flexion (lifting your knee). Do not try to strengthen this too early, continue to practice walking and stairs and this will come. - Outpatient physical therapy can be helpful to help return you to a normal gait and improve your flexibility and strength. This can start around 2 weeks. For some patients, it?s not necessary. Usually this is determined at the time of discharge or at the first post-operative visit. - You should wear the JUNG hose on both legs for 2 weeks. Dressing: Keep the surgical dressing in place for at least one week. After the first week it may be removed and replace with light gauze and tape or nothing. It may get wet after 3 days but avoid soaking the dressing. If it gets wet, just lightly pat dry. It is important to always keep some gauze between skin folds, especially when you are sitting. Spend some time with the wound exposed when you are lying flat as the incision does wrinkle onto itself. Medications: - You should take Tylenol and an anti-inflammatory Celebrex as your primary pain control medications. If the Celebrex is too expensive or not covered, please call the office for another alternative (Advil/Ibuprofen or Naproxen/Aleve). - You have been prescribed a stronger pain medication Oxycodone for breakthrough pain, take as needed as prescribed. - You have also been prescribed a stomach acid reduction agent Pantoprozole to help reduce stomach acid and reflux. - You have also been prescribed Decadron to help with post-operative nausea and pain. You will take this for two days starting tomorrow. - You will be taking Aspirin 81mg twice a day for DVT prevention unless instructed otherwise. - If you have constipation you should take Colace (which has been prescribed) or Miralax (which is available [id number]). It takes most people 3-4 days to have a bowel movement. Follow-up: 2 weeks If you have any acute concerns or questions, please do not hesitate to contact the office at [phone]. You may contact Dr. Clark with any questions after hours through the hospital at [phone] or on his cell phone at [phone]. Stand Alone Forms: Portal Information Referrals: Elton Clark MD [ [facility] STAFF PHYSICIAN, Orthopaedic Surgical] Equipment/Supplies: Walker Activity:: Elevate Remove Dressings/Wound Care:: Do Not Remove Shower/Bathe:: Cover Diet:: As Tolerated Discharge Orders Discharge Orders: Discharge Order (Routine); Ordered 09/29/25 Ordered By: Geraldine Phillip
--- NOTE | 2025-09-29 11:40 | W.ANESPRE ---
General Info Date of Service Date Performed: 09/29/25 Height: 5 ft 5.5 in Weight: 91.2 kg Body Mass Index (BMI): 32.9 Surgical Procedure: Operation Date: 09/29/25 12:35 Proposed Procedure Side Surgeon p Hip Total Hip Anterior, Actis Right Elton Clark MD Meds Allergies and Home Medications Allergies Allergy/AdvReac Type Severity Reaction Status Date / Time Penicillins Allergy Intermediate Hives, Verified 09/29/25 10:16 facial swelling Home Medication ?Medication ?Instructions ?Recorded Serrapeptase 1 tab PO DAILY 12/08/14 multivit-iron 18 mg-folic acid 400 1 tab PO DAILY 05/21/23 mcg-calcium 500 mg-minerals tablet (Daily Multiple For Women) coQ10 (ubiquinol) 100 mg capsule 100 mg PO DAILY 02/18/24 (Qunol Maxime CoQ10) atorvastatin 20 mg tablet 20 mg PO .QOD #90 tabs 08/21/24 levothyroxine 25 mcg tablet 25 mcg PO HS 09/28/25 lisinopril 5 mg tablet 5 mg PO HS 09/28/25 acetaminophen 500 mg tablet 1,000 mg (2 x 500 mg) PO Q8H PRN 09/29/25 pain #90 tabs aspirin 81 mg tablet,delayed 81 mg PO BID 30 days #60 tabs 09/29/25 release celecoxib 200 mg capsule (Celebrex) 200 mg PO BID PRN #60 caps 09/29/25 dexamethasone 4 mg tablet 4 mg PO DAILY #2 tabs 09/29/25 docusate sodium 100 mg capsule 100 mg PO BID #28 caps 09/29/25 (Colace) oxycodone 5 mg tablet 5 mg PO Q6H PRN #12 tabs 09/29/25 pantoprazole 40 mg tablet,delayed 40 mg PO DAILY #14 tabs 09/29/25 release Current Visit Medications: Current Medications Generic Name Dose Route Start Last Admin Trade Name Freq PRN Reason Stop Dose Admin Acetaminophen 1,000 mg 09/29/25 06:00 Acetaminophen 500 Mg Tab PO 09/29/25 23:59 PREOP AUDIE Celecoxib 400 mg 09/29/25 06:00 Celecoxib 200 Mg Cap PO 09/29/25 23:59 PREOP AUDIE Hydromorphone HCl 0.5 mg 09/29/25 07:17 Hydromorphone 2 Mg/Ml Syr IVP 10/29/25 07:16 Q2H PRN PRN Ringer's Solution 1,000 mls @ 80 mls/hr 09/29/25 06:00 IV 09/29/25 23:59 INFUSION AUDIE Cefazolin Sodium/Dextrose 2 gm in 50 mls @ 100 mls/hr 09/29/25 06:00 Ancef Duplex IVPB 09/29/25 23:59 PREOP AUDIE Tranexamic Acid/Sodium Chloride 1,000 mg in 100 mls @ 600 mls/hr 09/29/25 06:00 IVPB 09/29/25 23:59 PREOP AUDIE Cefazolin Sodium/Dextrose 1 gm in 50 mls @ 100 mls/hr 09/29/25 08:00 Ancef Duplex IVPB 09/30/25 00:29 Q8H AUDIE Oxycodone HCl 0 mg 09/29/25 07:17 Oxycodone 5 Mg Tab PO 10/29/25 07:16 Q3H PRN PRN Pain Sodium Chloride 0 ml 09/29/25 06:00 Normal Saline Flush 10 Ml Syr IV 09/29/25 23:59 PRN PRN Sodium Chloride 0 ml 09/29/25 06:00 Normal Saline 10 Ml Vial IJ 09/29/25 23:59 DIRECTED PRN Sterile Water 0 ml 09/29/25 06:00 Water,Injection,Sterile 10 Ml Vial IJ 09/29/25 23:59 DIRECTED PRN Tranexamic Acid 1,300 mg 09/29/25 07:17 Tranexamic Acid 650 Mg Tab PO 10/29/25 07:16 ONCE PRN postoperative PFSH Active Problems Active Problems: Problem Status Onset Code Arthritis of right hip Acute M16.11 Multinodular thyroid Acute E04.2 Congenital pes planus of both feet Acute Q66.51, Q66.52 Posterior tibial tendon dysfunction (PTTD) of left lower extremity Acute M76.822 Pain in left ankle Acute M25.572 Edema Acute R60.9 Tarsal tunnel syndrome of left side Acute G57.52 Numbness of left foot Acute R20.0 Thyroid nodule Acute E04.1 Excessive cerumen in both ear canals Acute H61.23 Skin lesion of face Acute L98.9 Diarrhea Acute R19.7 Hyperlipidemia Acute E78.5 Obesity (BMI 30-39.9) Acute E66.9 Shoulder pain, right Acute M25.511 Hypertension Chronic I10 Hypothyroid Chronic E03.9 Dysphagia Chronic R13.10 Goiter Chronic E04.9 Non-alcoholic fatty liver disease Chronic K76.0 Primary insomnia Chronic 01/06/16 F51.01 Medical History Medical History Palpitations aware of heartbeat not rapid or slow. Reviewed with PCP states it doesn't happen all of the time, and didnt see a need to investigate it firther unless it happened more. Ovarian cyst Knee pain right. replaced 2011 Uterine leiomyoma Non-alcoholic fatty liver disease Surgical History Surgical History Ligation of fallopian tube (~1979) Replacement of total knee joint (~12/2011) (R) Colonoscopy - IV Sedation (02/26/17) Tobacco Smoking/Tobacco Use Status: Former Tobacco Use Passive smoking exposure: No Second hand exposure: Yes Alcohol Alcohol Intake: current Alcohol intake frequency: a few times a week Alcohol type: beer, wine and hard liquor Substance Use Substance use: Never Substance use type: does not use Vital Signs and Lab Results Vital Signs Most Recent Vital Signs in EMR: Most Recent Vital Signs Temp Pulse Resp BP Pulse Ox 36.8 C 58 L 14 156/90 H 99 09/29/25 09:45 09/29/25 09:45 09/29/25 09:45 09/29/25 09:45 09/29/25 09:45 Lab Results Complete Blood Count: WBC, (4.4-10.8) 7.67 10^3/uL 09/24/25, 14:05 RBC, (3.93-5.22) 4.48 10^6/uL 09/24/25, 14:05 Hgb, (11.2-15.7) 13.4 g/dL 09/24/25, 14:05 Hct, (36.0-46.0) 39.8 % 09/24/25, 14:05 Plt Count, (130-400) 247 10^3/uL 09/24/25, 14:05 Complete Metabolic Panel: Sodium, (136-145) 143 mmol/L 09/24/25, 14:05 Potassium, (3.5-5.1) 4.1 mmol/L 09/24/25, 14:05 Chloride, (98-107) 107 mmol/L 09/24/25, 14:05 Carbon Dioxide, (20.0-31.0) 26.6 mmol/L 09/24/25, 14:05 BUN, (9-23) 19 mg/dL 09/24/25, 14:05 Creatinine, (0.55-1.02) 0.9 mg/dL 09/24/25, 14:05 Est GFR (CKD-EPI 2020), (mL/min/1.73m2) 64.57 09/24/25, 14:05 Calcium, (8.3-10.6) 9.3 mg/dL 09/24/25, 14:05 Glucose, (74-106) 106 mg/dL 09/24/25, 14:05 Imaging and Studies Imaging and Studies Study information below may be from another EMR and interpreted by another provider. Please see original notes in EMR for more complete details. Echocardiogram Summary: 03/12/24: Conclusion Normal left ventricular wall thickness and chamber size. Ejection fraction is 60%. Wall motion is normal Normal right ventricular size and function Both atria are normal in size The aortic valve is mildly sclerotic and trileaflet without stenosis or regurgitation Ascending aorta measures 3.9 cm Anesthesia Assessment and Plan Anesthesia History Personal History: No History of Anesthesia Complications Family History: No Family History of Anesthesia Complications Exercise Tolerance Exercise Tolerance: Metabolic Equivalents>4 Pertinent Negatives Pertinent Negatives: No Major Cardiovascular Symptoms or Complaints and No Major Pulmonary Symptoms or Complaints Cardiac & Pulmonary Exam Cardiac Exam: Normal S1/S2 Heart Sounds Pulmonary Exam: Clear Bilateral Breath Sounds Implantable Cardiac Device Does patient have a Pacemaker or an ICD?: No Airway Exam Known Difficult Airway: No Mallampati Class: 2 Mouth Opening: Normal (> 3cm) Thyromental Distance: Greater than 3 cm Facial Hair: Full Cross Neck Range of Motion: Full ROM Neck Circumference: Normal Teeth Condition: Normal Dentition ASA Classification ASA Score: ASA 2 Emergency Case?: No NPO Status NPO Status: NPO Clears >2 hours, Solids >8 hours Anesthesia Plan Resuscitation Status: Full Code Anesthesia Technique: Spinal Anesthesia Airway Planned: Natural Airway Monitors Used: Standard Monitors
[2025-09-29] MEDS: Celecoxib 200 MG CAP 400 MG PO (11:42)
[2025-09-29] MEDS: Acetaminophen 500 MG TAB 1000 MG PO (11:42)
[2025-09-29] MEDS: Lactated Ringers 1,000 ML 80 ML IV ×2 (12:05→14:25)
[2025-09-29] MEDS: ceFAZolin 2 GM/50 ML BAG IVPB (12:33)
[2025-09-29] MEDS: TRANEXAMIC ACID/SOD. CHL. 1,000 MG/100 ML BAG 600 MG IVPB (12:42)
[2025-09-29] MEDS: ROPIvacaine/EPI/CLONIDINE/KET 50 ML SYRINGE IJ (13:02)
--- NOTE | 2025-09-29 13:53 | DI.RAD_ITS ---
Exam(s) XR HIP RT IN OR EXAM: XR HIP RT IN OR CLINICAL HISTORY: Arthritis of right hip TECHNIQUE: 2D and realtime digital imaging was performed. CONTRAST MATERIAL: Refer to procedure report. COMPARISON: CR XR PELVIS PREOP ORTHO from 09/24/2025 FINDINGS: Fluoroscopy was provided for Dr. Clark during the performance of a right total hip arthroplasty. Please refer to the procedure report for complete details. Ka,r=2.8 mGy IMPRESSION: RADIATION DOSE DELIVERED: 0.0 0.0 0
--- NOTE | 2025-09-29 13:56 | W.PM.OP ---
Operative Note Operative Note PRE-OP DIAGNOSIS: Right Hip Osteoarthritis POST-OP DIAGNOSIS: same PROCEDURE: Right Anterior Total Hip Arthroplasty with Intraoperative Navigation SURGEON: Elton Clark NETWORK/TELECOM ENGINEER: Geraldine Phillip ANESTHESIA TYPE: Spinal Refer to Anesthesia Record ESTIMATED BLOOD LOSS: 300 PATHOLOGY: none sent TOURNIQUET TIME: 0 COMPLICATIONS: None Patient was transported to: PACU Patient's condition: stable Implants: 1. Depuy [place] Acetabular Component, 52mm 2. Depuy Acetabular Liner, [id number] 3. Depuy Actis Standard Collared Femoral Stem, Size 6 4. Depuy Altrx Ceramic Femoral Head, Size 36+5mm Indications: I have seen Kasey in clinic for symptoms of hip arthritis, confirmed with radiographic findings. She has exhausted nonoperative methods and was having significant limitations in daily function and desired better function and less pain. I discussed the technical details of a hip replacement. I explained the risks of the procedure to include, but not limited to, bleeding, infection, pain, stiffness, fracture, damage to nerves and vessels, damage to muscles and tendons, loosening, instability, leg length inequality, need for repeat procedure, blood clot and cardiopulmonary demise. Despite these risks, Kasey elected to proceed. Findings: There was significant signs of arthritis throughout the hip with large osteophytes throughout and significant synovitis. Procedure Description: Kasey was greeted in the preoperative holding area where the correct side was identified and marked. The consent was reviewed with the patient and signed. The history and physical was updated. All questions were answered. She was taken back to the operating room. A spinal anesthestic was then administered. The feet were wrapped with cast padding and Coban and then placed into the boot liners and then into the boots. Care was taken to protect the skin and make sure the heels were fully down and the boots were stable. The patient was then positioned onto the HANA table. Both legs were held in a neutral position. SCDs were applied. The patient was then slid down onto a peroneal post. Prophylactic antibiotics in the form of Cefazolin were administered. 1g of Tranxemic Acid was given intravenously within 30 minutes of incision. The right leg was then prepped with Chloraprep and draped in a standard fashion. A second prep with Chloraprep was performed prior to placement of a shower-curtain type drape with Iodine impregnated skin protection. A timeout to confirm correct identity, side and site, procedure, allergies, anesthesia, and medical concerns was performed. An obliquely oriented incision was made starting lateral to the ASIS and running distal over the Tensor Fascia Aspen (TFL) muscle belly toward the fibular head, approximately 10cm. The skin and soft tissue was dissected sharply, through Magali?s fascia, and to the fascia of the TFL. With the fascia and superior border of the IT band identified, the fascia was incised with a new knife just above any perforators from the IT band. The TFL muscle belly was bluntly dissected away from the fascia and moved laterally. The fat between TFL and rectus was identified to ensure the dissection was not within the TFL. Blunt dissection created space between abductors and the capsule and retractor was placed over the lateral femoral neck. The fibers of the rectus femoris tendon were identified and these were freed from the anterior capsule. A second cobra retractor was placed around the medial femoral neck. The TFL was further retracted laterally to show the deep fascia. Careful dissection through this layer identified three main crossing vessels of the lateral femoral circumflex. These were cauterized in multiple locations and then cut without any noticeable bleeding. The TFL was further released bluntly from the deep fascia to expose anterior hip capsule and fat The soft tissue orthopaedic retractor was then placed beneath the TFL and against sartorius and medial soft tissues to protect and retract the soft tissues. A T-capsulotomy was then performed starting at the superior lateral acetabulum and moving distally to the intertrochanteric ridge. These capsular flaps were tagged with a No. 1 Vicryl and elevated from within. The capsular flaps were released to the shoulder of the lateral neck and to the lesser trochanter to give excellent visualization of the proximal femur. A neck osteotomy was performed using an oscillating saw based on preoperative templates. This cut started in the shoulder and of the lateral neck and exited medially. The saw was at all times directed medially to avoid injury to the greater trochanter. Gross traction was applied to the leg and the osteotomy opened. The femoral head was removed with a corkscrew, making sure to protect the TFL on its exit. Traction was released after head removal. This was measured on the back table to determine the starting reamer size. Portions of the rectus obscuring visualization were minimally elevated off the superior acetabulum. An anterior retractor was placed over the anterior wall between capsule and labrum and attached to the Gripper retraction system. The femur was rotated to 90 degrees and medial capsule was fully released until the lesser trochanter was palpable and visible; the femur was returned to 30 degrees. A posterior retractor was placed similarly between capsule and labrum. This provided excellent visualization. The contents of the cotyloid fossa were removed with electrocautery and the labrum was removed with a knife. There was a notable floor osteophyte. There was significant chondromalacia of the superior acetabulum. Acetabular reaming began with a 47mm reamer. This first reaming was directed anterior to posterior and medial to get down to the true floor. This was inspected and reamed until the true floor was reached. The anterior retractor was then released and entry and exit was provided by traction on the capsular flaps. I then reamed sequentially up to a 52mm reamer where good fit was obtained. The larger reamers were oriented based on anatomical reference of the anterior and lateral nazario to ensure proper abduction and anteversion. Positioning and size was confirmed with the fluoroscopy. A 52mm Depuy [place] acetabular component was selected. The acetabulum was reamed around the periphery with the selected acetabular size to prevent a rim fit. The deep tissues were irrigated. The acetabular component was then impacted in a position of about 40-45 degrees of abduction and 15-20 degrees of anteversion, using the patient?s anatomy as the ultimate landmark. Fluoroscopy was used to confirm this. There was excellent global professional of the acetabular component and the inserting handle was removed. The acetabular liner, Depuy [id number] polyethylene liner, was inserted and lined up with the tines of the acetabular component. There was no soft tissue interposition. The liner was then impacted into position and confirmed to be well-seated. A portion of the kami-articular cocktail was then injected around the acetabulum into the capsule and periosteum. This cocktail consisted of 123mg of Ropivacaine, 0.25mg of Epinephrine, 0.04mg of Clonidine, and 15mg of Ketorolac, diluted to 50cc. The leg was rotated to 120 degrees. Any remaining medial capsule was released until the lesser trochanter was easily palpable. A retractor was placed medially. The lateral capsule was further released into the shoulder to allow access to the greater trochanter. A Salguero retractor was placed over the greater trochanter which allowed the trochanter to flip in front of the capsule for excellent exposure. The leg was brought down into maximal extension and 20 degrees of adduction while ensuring there was no impingement on the acetabulum. Any remnant capsule within the trochanter was released. Piriformis and obturator externis were identified and protected. There was excellent access to the proximal femur. The lateral neck remnant was removed with a rongeur. A blunt canal probe was used to identify the canal and trajectory for later broaching. A box osteotome initiated the broach course. A small curved rasp and a curved curette were used to work laterally. Broaching then began with a starter Actis broach. This was inserted manually around the trochanter and into the canal before mallet blows. The broach was seated to a few millimeters below the cut level based on the neck cut and the preoperative template. Sequential broaching was continued with the Kruxse pneumatic broaching device until a tight fit was obtained with good rotational control of the femur. A trial standard neck was inserted along with a +1.5 trial head. The leg was brought out of extension and adduction and then reduced with traction and internal rotation. The leg was stable anteriorly in a position of 30 degrees of extension and 90 degrees of external rotation. Fluoroscopy was used to ensure there was no fracture and the stem was seated well. Leg lengths were checked with an AP pelvis and pelvic reference points. Bankofpoker navigation system was used to confirm appropriate positioning and leg length and offset. This is slightly undercorrected leg length and offset, better corrected with a +5 mm head. Once content with the desired offset and leg lengths, the leg was brought back into extension, external rotation and adduction. The periosteum and surrounding tissue was injected with remaining portion of the kami-articular cocktail. The proximal femur was irrigated as well as the deep tissues. The Scope 5uy Naventis standard collared stem, size 6, was then manually inserted into the proximal femur making sure to control rotation. It was then malleted into position with light blows, giving breaks to allow bone expansion and decrease risk of fracture. The selected Depuy Altrx Ceramic Head, size 36+5mm, was then placed onto the clean and dry trunnion and secured with impaction onto the tapered fit. The leg was brought back out of extension and adduction and reduced with traction and internal rotation. Stability was confirmed with no shuck at 90 degrees of external rotation and 30 degrees of extension. No impingement through range of motion arc. Final x-ray images were obtained with fluoroscopy to confirm adequate positioning and no intraoperative fracture. The deep tissues were thoroughly irrigated with Surgiphor, betadine solution. This was allowed to sit in the wound for 3 minutes before being thoroughly irrigated out with normal saline. The capsule was then reapproximated with the previously placed sutures. The TFL fascia was finally closed with a No. 2 Stratafix, barbed suture. Deep tissues were then reapproximated with 0 Vicryl and a running 2-0 Vicryl. The skin was closed with a running 4-0 Monocryl in a subcuticular fashion. This was reinforced with skin glue. A Mepilex silver dressing was applied. At the end of the case, all counts were correct. Kasey was transferred to the hospital bed without difficulty and suffering no apparent complication. Kasey has a good prognosis. Physical therapy will start today and without restrictions, weight-bearing as tolerated. Aspirin 81mg BID will be used for DVT prophylaxis. Date of Procedure: 09/29/25
[2025-09-29] MEDS: fentaNYL 100 MCG/2 ML VIAL IVP ×2 (14:16→14:23)
[2025-09-29] MEDS: HYDROmorphone 2 MG/ML SYR IVP (14:34)
--- NOTE | 2025-09-29 15:02 | W.ANESPOSTOP ---
Postoperative Evaluation Date, Time and Location Date Performed: 09/29/25 Time Performed: 15:02 Patient Location: Day Surgery Unit Vital Signs Most Recent Imported Vital Signs: Most Recent Vital Signs Temp Pulse Resp BP Pulse Ox 36.5 C 50 L 14 176/102 H 100 09/29/25 14:48 09/29/25 14:48 09/29/25 14:48 09/29/25 14:48 09/29/25 14:48 Pain Score Most Recent Pain Score: Most Recent Pain Score Pain Level 4 09/29/25 14:39 Assessment Mental Status: Awake (Alert & Oriented to Patient Baseline) Airway and Respiratory Function: Patent airway with normal (patient baseline) respiratory exam Cardiovascular Function: Hemodynamically Stable Hydration Status: Adequately Hydrated Nausea & Vomiting: No Nausea or Vomiting Pain: Pain is Moderate or Severe Postoperative Pain Management: Pain being addressed with medication Peripheral Nerve Block: Patient did not receive a nerve block
[2025-09-29] MEDS: Tranexamic Acid 650 MG TAB 1300 MG PO (15:05)
[2025-09-29] MEDS: oxyCODONE 5 MG TAB PO (15:05)
--- NOTE | 2025-09-29 17:06 | IN_ITS ---
PT Notes Visit Reasons: Right hip DJD Physical Therapy Day Surgery Initial Evaluation Date: 09/29/2025 Referring Doctor: Geraldine Phillip NP/Dr. Clark PT Orders: PT CONSULT: Status post Ortho surgery Precautions: WBAT right lower extremity Patient Profile/Admitting Diagnosis: Angela is a 75-year-old female presenting status post elective right STACIE by Dr. Clark on 09/29/2025. Postop uncomplicated however patient with slight lightheadedness after taking pain medication. PMHX: Arthritis of right hip (Acute) Multinodular thyroid (Acute) Congenital pes planus of both feet (Acute) Posterior tibial tendon dysfunction (PTTD) of left lower extremity (Acute) Pain in left ankle (Acute) Edema (Acute) Tarsal tunnel syndrome of left side (Acute) Numbness of left foot (Acute) Hypothyroid (Chronic) Thyroid nodule (Acute) Excessive cerumen in both ear canals (Acute) Skin lesion of face (Acute) Diarrhea (Acute) Hyperlipidemia (Acute) Obesity (BMI 30-39.9) (Acute) Shoulder pain, right (Acute) Hypertension (Chronic) Dysphagia (Chronic) endoscopy wnl ? dateGoiter (Chronic) Non-alcoholic fatty liver disease (Chronic) 2020- LFT's wnlPrimary insomnia (Chronic 01/06/16) Medical History Palpitations aware of heartbeat not rapid or slowOvarian cyst Knee pain right. replaced 2011 Uterine leiomyoma Non-alcoholic fatty liver disease Surgical History Ligation of fallopian tube (~1979) Replacement of total knee joint (~12/2011) Colonoscopy - IV Sedation (02/26/17) Social History/Home Situation: Patient resides in two-story home with one-step to enter home however patient has 3 steps from driveway down to a walkway approximately 50 feet then 2 steps up to porch then 1 step in 2 home. Once in patient will remain on that level. Patient independent ambulation, ADLs, driving, meal prep home management Equipment Owned/DME: No DME at home patient fitted for and issued FWW Subjective: Patient reports I just want to crawl into my bed Objective: [] General Observation: Female presenting semireclined on stretcher with ice to right hip has been present Mental Status: Alert and oriented x 4, cooperative, able to follow instructions; agreeable to participate in evaluation Pain: Right hip 4/10 ROM: [] Right Upper Extremity: WNL Left Upper Extremity: WNL Right Lower Extremity: Hip flexion 90 degrees, hip abduction 10 degrees knee and ankle within normal limits Left Lower Extremity: WFL Strength: [] Right Upper Extremity: 5/5 Left Upper Extremity: 5/5 Right Lower Extremity: Hip grossly 3 -/5, knee 3/5, ankle 3/5 Left Lower Extremity: 5/5 Sensation: Intact Bed Mobility/Transfers: [] Supine to sit min assist Sit to stand SBA Stand to sit SBA Bed to chair with FWW CGA Gait: Ambulated with FWW 50 feet x 1 contact-guard assist demonstrating step to pattern reduced step length bilaterally, decreased knee flexion right, hip hike right curly toe of right Stairs 3 4 steps? and 2 6 steps with rails SBA with intermittent cues for sequencing step to pattern Balance: [] Static Sitting: [] Normal Dynamic Sitting: Fair plus Static Standing: Good with upper extremity support Dynamic Standing: Fair with upper extremity support Special Tests: [] Mobility Limitations Standardized Measure [] [facility] AM-PAC 6 clicks Basic Mobility Inpatient Short Form: [] Raw Score: 19 CMS Score: 41.77% deficit Informed Consent/Education: Patient instructed in purpose of PT consult. Packet containing STACIE exercise protocol has been given to patient. Education and training on initial set of exercises that can be done at home have been completed with patient. Treatment: 15135 transfer training various services with FWW contact-guard assist with providing contact-guard Ambulation with FWW 30 feet x 3 contact-guard assist has been demonstrating technique on 2nd and 3rd trials. Stair With hand-held assist of 2 as patient does not have railings or assistive device at home. 2 steps x 3 trials providing assistance and able to instruct this PT properly in preparation for instructing his son when he gets home Assessment: Patient is a 75-year-old female who presents with clinical signs and symptoms consistent with current/admitting diagnoses that have resulted to mobility limitations, gait instability, generalized weakness, and impairment of motor co ntrol as demonstrated by the following impairment level findings: 1. Decreased strength to right hip major muscle groups 2. Impaired standing balance 3. Limitation of joint range of motion in right hip 4. Pain right hip 5. Lightheadedness Impairments are contributing to the following functional limitations: 1. Inability to safely ambulate without assistive device 2. Increase completion time for mobility ADL performance 3. Increased fall risk 4. Difficulty performing stairs without assistance 5. Decline in bed mobility skills Patient is assessed as a moderate complexity based on the following: History: 75-year-old female with impairment level findings, functional limitations, and past medical history as indicated above Examination: Demonstrable impairment in strength, balance, and mobility level with underlying impairments and functional limitations as documented above Presentation: Evolving/stable Decision Making: Moderate Goals: N/A. PT evaluation and 1-2 treatment sessions only for functional mobility training using recommended AD and for HEP instruction. Plan of Care/Treatment Plan: N/A. PT evaluation and 1-2 treatment session only for functional mobility training using recommended AD and for HEP instruction. DISCHARGE RECOMMENDATIONS: Home with HEP and follow-up with orthopedic surgeon as scheduled TREATMENT CODE/TIME: 45619, [id number] Thank you for the opportunity to participate in the care of this patient. Archana Moy, PT [facility]
== END 2025-09-29 17:00 | disposition home or self-care (01) ==
LOC: SUR 09:35
PROVIDERS: PCP Nurse Practitioner Family; Visit Provider Student in an Organized Health Care Education/Training Program
PROC: (CPT 27130; principal; 2025-09-29 12:15)
DX: M16.11 Unilateral primary osteoarthritis, right hip (principal)
CPT/HCPCS: 20985; 27130; 97162; 97530; 73501; C1776; J0690; J1100; J1171; J2003; J2250; J2371; J2401; J2405; J2704; J3010

== ENCOUNTER 2025-10-12 14:17 | Outpatient (CLI) | payer MEDICARE, SELFPAY ==
--- NOTE | 2025-10-12 10:30 | DI.RAD_ITS ---
Exam(s) XR HIP RT COMPLETE AP PELVIS EXAM: XR HIP RT COMPLETE AP PELVIS INDICATION: 1ST POST OP S/P R STACIE. COMPARISON: CR XR PELVIS PREOP ORTHO from 09/24/2025 XA XR HIP RT IN OR from 09/29/2025 TECHNIQUE: 2D digital imaging was performed. Two views. FINDINGS: The right hip prosthesis shows satisfactory alignment. It appears unchanged from recent intraoperative images. No abnormal surrounding lucencies. Mild degenerative changes are present in the left hip. DATA REPOSITORY: RADIATION DOSE DELIVERED:
== END 2025-10-12 14:18 | disposition home or self-care (01) ==
LOC: DIORS 14:17
PROVIDERS: PCP Nurse Practitioner Family; Visit Provider Physician Assistant
DX: Z47.1 Aftercare following joint replacement surgery (principal); Z96.641 Presence of right artificial hip joint
CPT/HCPCS: 99024; 73502